=== PATIENT | female | born 1995 | race Caucasian/White ===

== ENCOUNTER 2022-02-12 08:29 | Emergency (ER) | payer BC, SELFPAY ==
[2022-02-12 09:05] VITALS: BP 122/82; PULSE 79; RESP 14; TEMP 36.7; O2SAT 99; BMI 20.3
--- NOTE | 2022-02-12 09:13 | ED_ITS ---
HPI - Psych General Chief Complaint: Psychiatric Symptoms Stated Complaint: Mental health crisis- Feels like hurting herself Time Seen by Provider: 02/12/22 08:43 History of Present Illness HPI Narrative: 26-year-old female nonsmoker with history of depression, occasional alcohol use presents tearful and depressed with suicidal thoughts but no plan. She is here of her own volition and thinks she may want to entertain the concept of inpatient. She states that she has occasionally had thoughts of hurting herself in the past but never quite as significant as today. As stated, she has no specific plan, she is managed by primary care provider back in [place] who recently increased her Lexapro 1-2 weeks ago. She does not specifically have a mental health therapist, counselor, psychiatrist or other. She states that she has really been struggling in the aftermath of a fractured leg many months ago and has had trouble getting back to her baseline, she is normally quite active and has been unable to return. She additionally states that she has had a recent break-up with her long distance boyfriend who traditionally filled the role of support person and she does not have that person currently Related Data Allergies Allergy/AdvReac Type Severity Reaction Status Date / Time Penicillins Allergy Verified 02/12/22 09:14 tramadol Allergy Verified 02/12/22 09:14 Review of Systems Review of Systems Narrative: GENERAL: Denies chills, fatigue, malaise, fever, sweats. HEENT: Denies sinus pain, ear pain, sore throat, difficulty swallowing, dizziness. RESPIRATORY: Denies dyspnea, cough, wheezing, hemoptysis, sputum. CARDIOVASCULAR: Denies chest pain, palpitations, orthopnea, edema, GASTROINTESTINAL: Denies nausea, vomiting, abdominal pain, diarrhea, constipation, melena. : Denies dysuria, frequency, incontinence, hematuria, urinary retention. MUSCULOSKELETAL: denies weakness, joint pain, or bony pain SKIN: Denies rash, skin lesions, or other NEUROLOGIC: Denies weakness, headache, numbness, change in speech, confusion, seizures, incoordination. PSYCHIATRIC: See HPI 12 point review of systems is negative except for those stated above Patient History Social History Smoking Status: Current every day smoker Exam Narrative Exam Narrative: GENERAL: [26] year old patient appears stated age. Well-developed patient, in obvious distress, tearful, distraught HEAD: Atraumatic. Normocephalic. EYES: Pupils equal round and reactive. Extraocular motions intact. No scleral icterus. No injection or drainage. ENT: Nose without bleeding, purulent drainage. Throat without erythema, tonsillar hypertrophy or exudate. Airway patent. NECK: Trachea midline. Non tender CARDIOVASCULAR: Regular rate and rhythm without murmurs, gallops, or rubs. RESPIRATORY: Clear to auscultation. Breath sounds equal bilaterally. No wheezes, rales, or rhonchi. GASTROINTESTINAL: Abdomen soft, non-tender, nondistended. EXTREMITIES: No edema or joint tenderness. BACK: Nontender without deformity or crepitance. No flank tenderness. NEURO: AOx3. SKIN: No rash or erythema of visible areas Initial Vital Signs Initial Vital Signs: Vital Signs Temperature 98.0 F 02/12/22 09:05 Pulse Rate 79 02/12/22 09:05 Respiratory Rate 14 02/12/22 09:05 Blood Pressure 122/82 02/12/22 09:05 Pulse Oximetry 99 02/12/22 09:05 Course Orders Ordered: ED Orders 02/12/22 09:10 Consult to COMMUNITY NUTRITION EDUCATOR - Residential Care Facility Manager Urgent Complete Blood Count AUTO DIFF Stat Comprehensive Metabolic Panel Stat Ethanol (ETOH) Stat Urine Drug Screen, Rapid Stat Consultations Consultation #1: COMMUNITY NUTRITION EDUCATOR - please see her note for details MDM - Psych Lab Data Result diagrams: 02/12/22 09:23 02/12/22 09:23 Labs: Lab Results 02/12/22 02/12/22 02/12/22 Range/Units 09:23 09:23 09:36 WBC 5.1 (4.5-11.0) X10^3/uL RBC 4.41 (4.0-5.2) X10^6/uL Hgb 11.7 L (12.0-16.0) g/dL Hct 35.1 L (36-46) % MCV 79.6 L (80-100) fL MCH 26.4 (26-34) PG MCHC 33.2 (30-36) % RDW 16.1 H (11.6-14.8) % Plt Count 274 (150-400) X10^3/uL Neut % (Auto) 72.9 (50-75) % Lymph % (Auto) 20.3 L (25-40) % [place] % (Auto) 5.8 (3-14) % Eos % (Auto) 0.2 L (2-4) % Baso % (Auto) 0.8 (0-2) % Neut # (Auto) 3700 (4792-8333) /uL Lymph # (Auto) 1000 L (9718-6028) /uL [place] # (Auto) 300 (0-900) /uL Eos # (Auto) 0 (0-450) /uL Baso # (Auto) 0 (0-100) /uL Sodium 138 (137-145) mmol/L Potassium 3.9 (3.4-5.1) mmol/L Chloride 105 (98-107) mmol/L Carbon Dioxide 26 (22-32) mmol/L BUN 7 (7-17) mg/dL Creatinine 0.69 (0.52-1.04) mg/dL Estimated GFR > 60 (>60) mL/min BUN/Creatinine Ratio 10.1 (6-22) Glucose 101 H (70-100) mg/dL Calcium 9.1 (8.4-10.2) mg/dL Total Bilirubin 0.6 (0.2-1.3) mg/dL AST 24 (14-36) IU/L ALT 12 (<35) IU/L Alkaline Phosphatase 72 (38-126) U/L Total Protein 7.3 (6.3-8.2) g/dL Albumin 4.4 (3.5-5.0) g/dL Globulin 2.9 (1.7-4.1) g/dL Albumin/Globulin Ratio 1.5 (1.0-2.8) U Opiates 300ng/mL cut Negative (Negative) Ur Oxycodone Screen Negative (Negative) Urine Methadone Screen Negative (Negative) Ur Barbiturates Screen Negative (Negative) U Tricyclic Antidepress Negative (Negative) Ur Phencyclidine Scrn Negative (Negative) Ur Amphetamines Screen Negative (Negative) U Methamphetamines Scrn Negative (Negative) Ur MDMA Scrn (Ecstasy) Negative (Negative) U Benzodiazepines Scrn Negative (Negative) Urine Cocaine Screen Negative (Negative) U Marijuana (THC) Screen Negative (Negative) Ethyl Alcohol < 10 ( - 10) mg/dL Point of Care Testing Test Results Negative Urine Dip Bedside Urine Glucose Negative Bedside Urine Bilirubin - Negative Bedside Urine Ketone - Negative Urine Specific [place] 1.015 Bedside Urine Occult Blood ++ Bedside Urine pH 6.0 Bedside Urine Protein - Negative Bedside Urine Urobilinogen 0.2 Bedside Urine Nitrite - Negative Bedside Urine Leukocytes - Negative Esterase MDM Narrative Medical decision making narrative: 904 - When specifically asked if she wants to she says yes, but she doesn't want to do it herself After patient had been medically cleared and evaluated by COMMUNITY NUTRITION EDUCATOR her outlook as improved, she has a friend at bedside and visually seems relieved. She is able to contract for safety, feels quite good about the plan to be tied in with crisis team. She has been given extensive return precautions and questions answered to her apparent satisfaction Discharge Plan Departure Patient Disposition: Home Clinical Impression: Suicidal ideation, Depression Instructions: Depression, DI for Suicidal Ideation-Adult Activity Restrictions/Additional Instructions: *You have been diagnosed with [depression and suicidal ideation.] *What to do: *If you feel that you are entering into mental health crisis you have multiple options 1. Return to the ER immediately 2. Call the Crisis Line at [phone] 3. Send an anonymous text by sending the word Trish to [phone] 4. Navigate your web browser to [employer] to engage in anonymous chat with a mental health worker Referrals: [facility] [Outside]
[2022-02-12 09:42] LABS: UR Morphine/Opiate cutoff 300 Negative (Negative); Ur Creatinine Normal (Normal); Ur Specific Gravity Normal (Normal); Urine Amphetamines Negative (Negative); Urine Barbiturates Negative (Negative); Urine Benzodiazepines Negative (Negative); Urine Cocaine Negative (Negative); Urine MDMA Negative (Negative); Urine Methadone Negative (Negative); Urine Methamphetamines Negative (Negative); Urine Oxycodone Negative (Negative); Urine Phencyclidine Negative (Negative); Urine Tetrahydrocannabinol Negative (Negative); Urine Tricyclic Antidepressant Negative (Negative); Urine pH Normal (Normal)
[2022-02-12 09:50] LABS: Add Manual Diff / Slide Review NO; Basophils Absolute Auto 0 /uL (0-100); Basophils Percent Auto 0.8 % (0-2); Eosinophils Absolute Auto 0 /uL (0-450); Eosinophils Percent Auto 0.2 % (2-4); Hematocrit 35.1 % (36-46); Hemoglobin 11.7 g/dL (12.0-16.0); Lymphocytes Absolute Auto 1000 /uL (1100-4500); Lymphocytes Percent Auto 20.3 % (25-40); Mean Corpuscular HGB Conc 33.2 % (30-36); Mean Corpuscular Hemoglobin 26.4 PG (26-34); Mean Corpuscular Volume 79.6 fL (80-100); Monocytes Absolute Auto 300 /uL (0-900); Monocytes Percent Auto 5.8 % (3-14); Neutrophils Absolute Auto 3700 /uL (1500-7000); Neutrophils Percent Auto 72.9 % (50-75); Platelet Count 274 X10^3/uL (150-400); Red Blood Cell Count 4.41 X10^6/uL (4.0-5.2); Red Cell Distribution Width 16.1 % (11.6-14.8); White Blood Cell Count 5.1 X10^3/uL (4.5-11.0)
[2022-02-12 10:06] LABS: Alanine Aminotransferase 12 IU/L (<35); Albumin 4.4 g/dL (3.5-5.0); Albumin Globulin Ratio 1.5 (1.0-2.8); Alkaline Phosphatase 72 U/L (38-126); Aspartate Aminotransferase 24 IU/L (14-36); BUN Creatinine Ratio 10.1 (6-22); Bilirubin Total 0.6 mg/dL (0.2-1.3); Blood Urea Nitrogen 7 mg/dL (7-17); Calcium 9.1 mg/dL (8.4-10.2); Carbon Dioxide 26 mmol/L (22-32); Chloride 105 mmol/L (98-107); Estimated Glomerular Filt Rate > 60 mL/min (>60); Ethanol (ETOH) < 10 mg/dL; Globulin 2.9 g/dL (1.7-4.1); Glucose 101 mg/dL (70-100); HEMOLYSIS < 15 (0-50); Potassium 3.9 mmol/L (3.4-5.1); Sodium 138 mmol/L (137-145); Total Protein 7.3 g/dL (6.3-8.2)
--- NOTE | 2022-02-12 10:38 | PC.NURSE ---
Patient gave permission for her friend to come in to the emergency room. Charge nurse KB gave patient warm blanket and oriented patient to the room. Patient is sitting in bed carrying talking with her friend. Patient is calm and respectful.
[2022-02-12 13:18] VITALS: BP 107/72; PULSE 81; RESP 16; O2SAT 100
--- NOTE | 2022-02-12 16:31 | CM.SWNOTE ---
MOTOR COACH CHAUFFEUR Assessment MOTOR COACH CHAUFFEUR - Heel Reducer Assessment MOTOR COACH CHAUFFEUR - Heel Reducer Assessment Time Spent with Patient Start date 02/12/22 Visit Start Time 12:20 End date 02/12/22 Visit End Time 12:50 Total time Care Management spent on 30 minutes patient visit-in minutes Mental Health Screening Include Onset, Duration, Intensity Presenting Problem Patient presents to the ED with concern for increased depression and invasive thoughts of dying. Patient endorses SI but denies plan. Patient endorses that she wishes she could go to sleep and not wake up. Precipitating Event(s) Patient endorses recent injury where she broke her leg and has been battling with rehabilitation and recuperating. Patient endorses that her boyfriend recently broke up with her and he was previously an important emotional support. Patient endorses that she moved to the area for work for the summer and has limited natural supports. Patient Strengths Patient is seeking help. Current Behavioral Health Provider(s) Patient sees Psychologist Dr. Jono Greenberg, Provider, Ph. # Mitch (Ph. # [phone]), patient states she has had 3 sessions so far and has been engaging in EMDR therapy. Psych. Hx Mental Health and Chemical Patient endorses hx of anxiety Dependency , depression and passive SI Patient endorses she has rx for Lexapro and Lorazapam. Patient endorses that her PCP increased her dose of Lexapro to 20 mg recently. 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 Patient endorses occasional THC use and nicotene use and denies other substances. Family Hx of Behavioral Abuse None reported. Patient stats she does not talk to her family about her emotional needs Psychiatric Hospitalizations (date(s)/ No hx location) Psychosocial information & Support Patient is 26 y/o female who Systems is currently residing in [facility] this summer for work. Patient endorses that she resides in [place], [place]. Patient endorses that she has friends as supports and has a therapist. School/Work Patient works for [employer] Legal Concerns Legal Matters - Outstanding Issues None reported Mental Status Orientation (Person/Place/Time) A/Ox4 Stated Mood worse, not so good Affect (Congruent with Mood?) euthymic, full range, not congruent with mood Thought Content - Specify/Describe None reported Obsessions, Delusions, Hallucinations Thought Processes (Ymajqax-Qgwfrzit-Jqox Coherent Emwzwihb-Uefexgnc-Pnhadtcvqg- Xdozxqqpyzeymi-Dlpiftf-Fylzwbxnotzr- Thought Blocking) Speech (Aqptse-Vupj-Nqqdajn-Rapid-Soft- Normal Loud-Pressured) Motor (Sapgji-Ingrojqau-Wfod-Other) Normal Insight (Qhsq-Aqcc-Bant/Limited) fair/good Judgement (Yvnr-Ddvn-Hmei/Limited) good Impulse Control (Adequate-Impaired) adequate Memory (Yphxudnpw-Balzso-Qkjutz, intact, not formally assessed Impaired-Intact) Concentration (Intact-Impaired) intact Attention (Intact-Impaired) intact Behavior (Appropriate-Inappropriate) appropriate Additional Comment Patient is calm, cooperative, and communicative Risk Assessment Suicidal Ideation (Plan) Yes Homicidal Ideation (Plan) No Comment Patient denies HI. Patient endorses vague and passive SI. Patient endorses thoughts of being hit being hit by a car or not waking up from sleep. Patient denies intent to harm self or carry out plan. Patient endorses increase in depression in the last 5 months due to life stressors. Patient denies hx of self harm . Intervention Intervention MOTOR COACH CHAUFFEUR enters room to meet with patient. Present in room with patient is patient's friend. Patient endorses significant life stressors and increase in SI and depression. Patient denies plans and denies that she will act on SI. Patient endorses thoughts of dying by not waking up or being hit by a car. Patient denies current SI. Patient endorses that she has a current therapist that she plans to f/u with. Patient endorses limited supports in the area. MOTOR COACH CHAUFFEUR provides patient with crisis line contacts and AA support group contact number. Patient's friend endorses that she is a support. Patient endorses that she resides with coworkers and has friends supports that she could reach out to if needed. Patient endorses she has knowledge of breathing techniques and strategies to de-escalate anxiety. Patient endorses safety discharging from the ED. MOTOR COACH CHAUFFEUR discusses [facility] crisis line f/u call and patient indicates agreement and understanding. MOTOR COACH CHAUFFEUR calls [facility] crisis line and sets up f/u phone call for patient. It is the opinion of this MOTOR COACH CHAUFFEUR that patient is safe to d/c to home with friend. Patient to f/u with outpatient provider and utilize crisis lines as needed with f/u call today. MOTOR COACH CHAUFFEUR reviews the above with ED provider Dr. Dumont who indicates agreement and understanding. Plan RA Plan Patient to d/c to home when medically clear with further outpatient f/u SVITLANA Marie
== END 2022-02-12 13:20 | disposition home or self-care (01) ==
PROVIDERS: Emergency Provider Emergency Medicine
DX: R45.851 Suicidal ideations (principal); F32.9 Major depressive disorder, single episode, unspecified
CPT/HCPCS: 36415; 80053; 80305; 80320; 81003; 81025; 85025; 99284

== ENCOUNTER 2024-03-03 12:02 | Emergency (ER) | payer OTHER, SELFPAY ==
[2024-03-03 12:04] VITALS: BP 134/93; PULSE 96; RESP 14; TEMP 37.2; O2SAT 99; BMI 20.9
--- NOTE | 2024-03-03 12:08 | ED.LOWEXIN ---
HPI - Extremity Injury (Lower) General Chief Complaint: Extremity Injury, Lower Stated Complaint: Left knee pain Time Seen by Provider: 03/03/24 12:07 History of Present Illness HPI Narrative: Patient is a 28-year-old female very active presenting today with left knee pain. She was at work loading and E bike up on the roof when the bike slipped and she twisted her knee. This event happened 2 weeks prior. Since then it has been ongoing and nagging. She would previous tib-fib fracture with surgery. She is tender medially. She is able to weightbear. She was able to work and rides bike. No other injury. Related Data Home Medications Medication Instructions Recorded Confirmed Unobtainable 02/23/22 02/23/22 Allergies Allergy/AdvReac Type Severity Reaction Status Date / Time Penicillins Allergy Verified 03/03/24 12:08 tramadol Allergy Verified 03/03/24 12:08 Patient History Social History Smoking Status: Never smoker Smoking Status: Never smoker tobacco type: vaping alcohol intake frequency: 0-2 drinks per day Substance Use Type: marijuana Exam Initial Vital Signs Initial Vital Signs: Vital Signs Temperature 99.0 F 03/03/24 12:04 Pulse Rate 96 H 03/03/24 12:04 Respiratory Rate 14 03/03/24 12:04 Blood Pressure 134/93 H 03/03/24 12:04 Pulse Oximetry 99 03/03/24 12:04 Oxygen Delivery Method Room Air 03/03/24 12:04 GENERAL: Alert well-appearing 20-year-old female CARDIOVASCULAR: peripheral pulses in tact, cap refill <2 sec RESPIRATORY: No respiratory distress, speaks in full sentences without difficulty EXTREMITIES: Normal range of motion, no clubbing or edema. Neurovascularly intact Left lower extremity scar noted tender medially knee stable NEUROLOGICAL: Cranial nerves II through XII grossly intact. Normal gait and speech. SKIN: Warm, dry, no petechiae, no rashes or lesions. Course Orders Ordered: ED Orders 03/03/24 12:08 XR knee LT 3V Stat Vital Signs Vital signs: Vital Signs - 8 hr 03/03/24 12:04 Temperature 99.0 F Pulse Rate 96 H Respiratory Rate 14 Blood Pressure 134/93 H Pulse Oximetry 99 Oxygen Delivery Method Room Air MDM - Extremity Injury (Lower) Imaging Data Extremity x-ray #1: Radiologist's Impression: PROCEDURE: XR KNEE LT 3V INDICATIONS: knee pain TECHNIQUE: 3 views of the knee were acquired. COMPARISON: None. FINDINGS: Bones: No fractures or dislocations. No suspicious bony lesions. Tibial fusion hardware is present. Hardware is intact without hardware fracture or periprosthetic lucency to suggest loosening. Alignment is stable. Soft tissues: No joint effusion. No suspicious soft tissue calcifications. IMPRESSION: Tibial fusion. No visualized acute fracture or dislocation. However, if clinical concern and/or pain persist, short interval imaging followup in 7-10 days is recommended, as occult injury cannot be definitively excluded. Dictated by: Risa Macdonald M.D. on 03/03/2024 at 12:55 [facility] Narrative Medical decision making narrative: Patient is a 28-year-old female with prior tibial plateau fracture presenting today with left knee pain. X-ray shows hardware is intact. Suspect and knee sprain. Supportive care only at this time. She has a knee brace at home. Discharge Plan Departure Patient Disposition: Home Clinical Impression: Left knee sprain Instructions: DI for Knee Sprain Activity Restrictions/Additional Instructions: *You have been diagnosed with left knee sprain *What to do: At this time wear brace rest and ice as needed.. Please follow L and I protocol *Continue to take medications as directed Tylenol Motrin as needed for pain *Follow up with your primary care provider in 2-3 days or call [phone] *Return to ER if you should have any new, worsening or concerning symptoms Prescriptions: No Action Unobtainable Referrals: Silvana,MD Jessica [Primary Care Provider] - Stand Alone Forms: Patient Portal/API
[2024-03-03 13:55] VITALS: BP 109/74; PULSE 94; RESP 18; O2SAT 100
== END 2024-03-03 13:55 | disposition home or self-care (01) ==
PROVIDERS: Emergency Provider Emergency Medicine
DX: S83.92XA Sprain of unspecified site of left knee, initial encounter (principal); X50.1XXA Overexertion from prolonged static or awkward postures, initial encounter
CPT/HCPCS: 73562; 99281; 99282